=== PATIENT | female | born 1965 | race Caucasian/White ===

== ENCOUNTER 2016-12-02 07:00 | Day surgery (SDC) | payer BC ==
[~2016-12-02] VITALS: Ht 157.5 cm; Wt 71.7 kg
[~2016-12-02 07:00] MED LIST: IBUPROFEN200 MG PO
--- NOTE | 2016-12-02 10:16 | NUR ---
12/02/16 [address] WITH ST ELEVATION WHICH IS DUE TO LEAD PLACEMENT PER THE BINDERY TECHNICIAN.
[2016-12-02] MEDS ORDERED: NORCO 10-325 T1 EACH PO (11:24)
--- NOTE | 2016-12-02 13:44 | NUR ---
PT UP TO BR AND AMBULATES WELL. PT REQ DC HOME. VERBAL DC INSTRUCTIONS GIVEN AND PT VERBALIZES UNDERSTANDING. PT ASSISTED DRESSED AND SHE TOLERATES THAT WELL.
--- NOTE | 2016-12-04 07:18 | OR ---
[facility] [address], [place] [address] Signed DATE OF PROCEDURE: 12/02/16 PREOPERATIVE DIAGNOSIS Impingement, left shoulder, with acromioclavicular joint arthritis. POSTOPERATIVE DIAGNOSIS Impingement, left shoulder, with acromioclavicular joint arthritis PROCEDURE Left shoulder arthroscopy with subacromial decompression and arthroscopic Chantale procedure. SURGEON: Gamal Mercado MD. ANESTHESIA: General. SPECIMENS AND COMPLICATIONS There were no specimens or complications. Tourniquet was not used. BLOOD LOSS: Minimal. DESCRIPTION OF PROCEDURE The patient was taken to the operating room. After anesthesia was induced and the airway secured, the patient was placed in a modified beach chair position and prepped and draped in a routine sterile fashion. The bony topography was outlined with a skin marking pen and the arthroscope was inserted into the subacromial space through the standard posterior portal. There was a moderate amount of synovial hypertrophy, but no other findings. An auxiliary lateral portal was created using a standard cannula. The VAPR electrosurgical device was introduced and a subacromial bursectomy performed. We then used the VAPR to remove the inferior aspect of the AC joint capsule and noted there was no remaining articular cartilage on the distal end of the clavicle. We then removed the VAPR device and inserted a 4 mm hannah. This enabled us to do a subacromial decompression beginning at the lateral margin and going all the way back to almost the mid coronal plane, and then removing about 5 mm of bone all the way across to the AC joint. We then were able to co-plane the distal clavicle in line with the subacromial decompression. We then used a spinal needle to localize an additional axillary anterior portal and then created the said portal. We then introduced the VAPR device and removed the remaining soft tissue in the AC joint. We then removed the vapor and we placed the 4 mm hannah through the anterior portal and used it to resect about 8 mm of the distal clavicle. At this point, we appeared to have a complete decompression of the subacromial space and the AC joint. The subacromial space was irrigated and drained. The portals were closed and sterile dressings applied. She was placed in a sling, awakened to the Electronically Signed By: GAMAL MERCADO MD 12/04/16 0718 PATIENT NAME: JOB MCKEON OPERATIVE REPORT DATE OF : 67 PHYSICIAN: GAMAL MERCADO MD REPORT #: [id number] REPORT IS CONFIDENTIAL AND NOT TO BE RELEASED WITHOUT AUTHORIZATION [address] [address] Signed recovery room where she arrived in stable condition. Antibiotic protocols were followed, and the counts were correct. MD WILMA Lucero/Sonali /[id number] cc: Alonzo Hart MD Electronically Signed By: GAMAL MERCADO MD 12/04/16 0718 PATIENT NAME: JOB MCKEON OPERATIVE REPORT DATE OF : 67 PHYSICIAN: GAMAL MERCADO MD REPORT #: [id number] REPORT IS CONFIDENTIAL AND NOT TO BE RELEASED WITHOUT AUTHORIZATION
== END 2016-12-02 13:00 | disposition home or self-care (01) ==
LOC: DS 07:00 → OPS 07:00 → DS 08:15 → OPS 08:15
PROVIDERS: Orthopaedic Surgery
PROC: 0PBB4ZZ Excision of Left Clavicle, Percutaneous Endoscopic Approach (ICD-10-PCS; 2016-12-02)
PROC: 0RNK4ZZ Release Left Shoulder Joint, Percutaneous Endoscopic Approach (ICD-10-PCS; principal; 2016-12-02 08:15)
DX: M19.012 Primary osteoarthritis, left shoulder (principal); M25.812 Other specified joint disorders, left shoulder
CPT/HCPCS: 01630; 64415; 76942; J0690; J1100; J1885; J2250; J2405; J2704; J2795; J3010; J7120